=== PATIENT | female | born 1940 | race Caucasian/White ===

== ENCOUNTER 2016-09-21 09:30 | Outpatient (CLI) | payer OTHER | END 2016-09-21 19:00 | disposition home or self-care (01) | LOC: SMI 09:30 | DX: M17.11 Unilateral primary osteoarthritis, right knee (principal); M76.9 Unspecified enthesopathy, lower limb, excluding foot; M94.261 Chondromalacia, right knee | CPT/HCPCS: 73721 ==

== ENCOUNTER 2021-05-14 08:14 | Emergency (ER) | payer OTHER ==
[~2021-05-14] VITALS: Ht 152.4 cm; Wt 65.8 kg
[2021-05-14 08:34] VITALS: BP_SYST 145
[2021-05-14 10:25] VITALS: BP_SYST 145
== END 2021-05-14 10:25 | disposition home or self-care (01) ==
LOC: SED 08:14
DX: S13.4XXA Sprain of ligaments of cervical spine, initial encounter (principal); S09.90XA Unspecified injury of head, initial encounter; I10 Essential (primary) hypertension; W10.9XXA Fall (on) (from) unspecified stairs and steps, initial encounter; Y93.89 Activity, other specified; Y92.89 Other specified places as the place of occurrence of the external cause; Y99.8 Other external cause status
CPT/HCPCS: 70450-TC; 72125-TC; 76376; 99285